=== PATIENT | female | born 1955 | race Caucasian/White ===

== ENCOUNTER 2021-11-04 20:35 | Emergency (ER) | payer OTHER, MEDICAID ==
[~2021-11-04] VITALS: Ht 149.9 cm; Wt 59.9 kg
[2021-11-04 20:44] VITALS: BP_SYST 142
--- NOTE | 2021-11-04 20:48 | NUR ---
PATIENT SEEN FOR LEFT LEG PAIN A FEW DAYS AGO AND NOW RIGHT LEG HURTS WELL. JUST STARTED ON ANTIBIOTICS YESTERDAY WITH NO RELIEF.
--- NOTE | 2021-11-04 22:15 | NUR ---
PATIENT LEFT WITHOUT BEING SEEN
== END 2021-11-04 22:15 | disposition left against medical advice (07) ==
LOC: SED 20:35
DX: M79.604 Pain in right leg (principal); Z53.21 Procedure and treatment not carried out due to patient leaving prior to being seen by health care provider